=== PATIENT | male | born 1960 | race Caucasian/White ===

== ENCOUNTER 2017-10-01 09:48 | Emergency (ER) | payer OTHER ==
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
[2017-10-01] MEDS ORDERED: ALB6.7R INH (10:21)
[2017-10-01] MEDS ORDERED: MONT10TA PO (10:21)
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
[2017-10-01 12:35] VITALS: BP 147/92
== END 2017-10-01 12:34 | disposition home or self-care (01) ==
LOC: ER 10:19
DX: S43.402A Unspecified sprain of left shoulder joint, initial encounter (principal); M79.1 Myalgia; V49.60XA Unspecified car occupant injured in collision with unspecified motor vehicles in traffic accident, initial encounter
CPT/HCPCS: 71046; 71100; 72052; 99284